=== PATIENT | male | born 1975 | race African-American/Black ===

== ENCOUNTER 2017-04-30 20:17 | Emergency (ER) | payer BC ==
[2017-04-30] MEDS ORDERED: KETOROLAC TROMETHAMINE 60 MG/2 ML SDV IM ONE (21:02)
[2017-04-30 21:05] VITALS: BP 153/82
--- NOTE | 2017-04-30 21:08 | ER Document Report ---
ED Headache - General Chief Complaint: Headache Stated Complaint: HEADACHE Time Seen by Provider: 04/30/17 20:54 Notes: 42 yo male with hx/o HTN, c/o intermittant frontal headache x 3 days. + sinus pressure. no fever, no neck pain. no n/v. no hx/o frequent headache TRAVEL OUTSIDE OF THE [place] IN LAST 30 DAYS: No - HPI Patient complains to provider of: Headache Onset was: Gradual. denies: Abrupt, Thunderclap Quality of pain: Achy, Dull Pain Level: 3 Associated symptoms: denies: Chills, Dizzy, Double/blurred vision, Fever, Nausea /vomiting, Neck pain, Photophobia Similar symptoms previously: No Recently seen / treated by doctor: Yes - last week - [facility] - Related Data Allergies/Adverse Reactions: Sulfa (Sulfonamide Antibiotics) Allergy (Verified 04/30/17 20:26) Past Medical History - General Information source: Patient - Social History Smoking Status: Current Every Day Smoker Cigarette use (# per day): Yes - 1 ppd Frequency of alcohol use: None Drug Abuse: None Occupation: unemployed Lives with: Family Family History: Reviewed & Not Pertinent Renal/ Medical History: Denies: Hx Peritoneal Dialysis Review of Systems - Review of Systems Constitutional: No symptoms reported EENT: No symptoms reported Cardiovascular: No symptoms reported Respiratory: No symptoms reported Gastrointestinal: No symptoms reported Genitourinary: No symptoms reported Male Genitourinary: No symptoms reported Musculoskeletal: No symptoms reported Skin: No symptoms reported Hematologic/Lymphatic: No symptoms reported Neurological/Psychological: See HPI Physical Exam - Vital signs Vitals: Temp Pulse Resp BP Pulse Ox 98.7 F 81 18 153/82 H 95 04/30/17 20:24 04/30/17 20:24 04/30/17 20:24 04/30/17 20:24 04/30/17 20:24 Interpretation: Normal - General General appearance: Appears well, Alert In distress: None - HEENT Head: Normocephalic, Atraumatic Eyes: Normal Conjunctiva: Normal Extraocular movements intact: Yes Pupils: PERRL Tympanic membrane: Normal Sinus: Tenderness - mild frontal tap tenderness Mucous membranes: Normal, Moist Pharynx: Normal Neck: Normal, Supple. No: Meningismus - Respiratory Respiratory status: No respiratory distress Chest status: Nontender Breath sounds: Normal Chest palpation: Normal - Cardiovascular Rhythm: Regular Heart sounds: Normal auscultation Murmur: No - Abdominal Inspection: Normal Distension: No distension Bowel sounds: Normal Tenderness: Nontender Organomegaly: No organomegaly - Back Back: Normal, Nontender - Extremities General upper extremity: Normal inspection, Nontender, Normal color, Normal ROM , Normal temperature General lower extremity: Normal inspection, Nontender, Normal color, Normal ROM , Normal temperature, Normal weight bearing. No: Alla's sign - Neurological Neuro grossly intact: Yes Cognition: Normal Orientation: AAOx4 Gates Coma Scale Eye Opening: Spontaneous Nathalia Coma Scale Verbal: Oriented Gates Coma Scale Motor: Obeys Commands Nathalia Coma Scale Total: 15 Speech: Normal Motor strength normal: LUE, RUE, LLE, RLE Sensory: Normal - Psychological Associated symptoms: Normal affect, Normal mood - Skin Skin Temperature: Warm Skin Moisture: Dry Skin Color: Normal Course - Re-evaluation Re-evalutation: 04/30/17 21:08 no syncope, no confusion, no neck pain, no visual disturbance or eye pain, no fever. low suspicion of SAH, acute stroke, temporal arteritis. pt is neurologicaly intact, afebrile, nontoxic. H&P more consistant with sinus headache. will treat headache with Toradol IM. Treat sinus inflammation with Mucinex, Coricidin HBP, Flonase and follow up tomorrow with PCM. pt agreeable with plan and stable for discharge 04/30/17 21:16 BP slightly elevated. pt has hx/o HTN. taking meds as prescribed. pt encourage to stop smoking, keep blood pressure diary and follow up with pcm for evaluation if BP remains elevated - Vital Signs Vital signs: Temp Pulse Resp BP Pulse Ox 98.7 F 81 18 153/82 H 95 04/30/17 20:24 04/30/17 20:24 04/30/17 20:24 04/30/17 20:24 04/30/17 20:24 Discharge - Discharge Clinical Impression: Headache Instructions: Headache ([facility]), Decongestant Medication ([facility]) Additional Instructions: Your headache today is more consistant with sinus pressure You were treated with an injection of Toradol You were given a prescription for Flonase, an intra-nasal steroid. Take as prescribed Recommend OTC Mucinex + Coricidin HBP to relieve sinus congestion and pressure Follow up with your primary care provider if your headaches persist Please return to ER for any worsening of pain, fever, or neck stiffness Prescriptions: Fluticasone Propionate [Flonase Nasal [place] 50 Mcg/[place] 16 gm] 2 sprays NASL DAILY #1 inhaler Forms: Elevated Blood Pressure
== END 2017-04-30 21:31 | disposition home or self-care (01) ==
LOC: ER 20:17
DX: J32.9 Chronic sinusitis, unspecified (principal); R51 Headache; I10 Essential (primary) hypertension; F17.210 Nicotine dependence, cigarettes, uncomplicated; Z88.2 Allergy status to sulfonamides
CPT/HCPCS: 99283; 96372; J1885

== ENCOUNTER 2017-07-24 01:06 | Emergency (ER) | payer BC ==
[2017-07-24] MEDS ORDERED: LIDOCAINE 1%/EPINEPHRINE INJ 20 ML VIAL INJ ONE (02:59)
[2017-07-24] MEDS ORDERED: DOXYCYCLINE HYCLATE 100 MG TABLET PO ONE (02:59)
--- NOTE | 2017-07-24 04:47 | ER Document Report ---
ED General - General Chief Complaint: Abscess Stated Complaint: POSSIBLE ALLERGIC REACTION Time Seen by Provider: 07/24/17 02:53 TRAVEL OUTSIDE OF THE [place] IN LAST 30 DAYS: No - Related Data Allergies/Adverse Reactions: Sulfa (Sulfonamide Antibiotics) Allergy (Verified 07/24/17 01:50) Past Medical History - Social History Smoking Status: Current Every Day Smoker Chew tobacco use (# tins/day): No Frequency of alcohol use: None Drug Abuse: None Family History: Reviewed & Not Pertinent Patient has suicidal ideation: No Patient has homicidal ideation: No - Past Medical History Cardiac Medical History: Reports: Hx Hypertension Renal/ Medical History: Denies: Hx Peritoneal Dialysis Past Surgical History: Reports: Hx Orthopedic Surgery - RIGHT KNEE - Immunizations Hx Diphtheria, Pertussis, Tetanus Vaccination: No Physical Exam - Vital signs Vitals: Temp Pulse Resp BP Pulse Ox 98.8 F 71 18 144/82 H 95 07/24/17 01:49 07/24/17 01:49 07/24/17 01:49 07/24/17 01:49 07/24/17 01:49 Course - Vital Signs Vital signs: Temp Pulse Resp BP Pulse Ox 98.8 F 71 18 144/82 H 95 07/24/17 01:49 07/24/17 01:49 07/24/17 01:52 07/24/17 01:49 07/24/17 01:49 Discharge - Discharge Clinical Impression: Rash, Abscess Condition: Good Disposition: HOME, SELF-CARE Additional Instructions: PLease take the antibiotic as prescribed. please stay out of the sun when on the antibiotic as it makes your skin very sensitive. please take the antibiotic with food. if your rash continues despite the antibiotic you will need to follow up with a building construction superintendent for further evaluation. please follow up with your primary care physician in 3-4 days and discuss with them referral to a building construction superintendent if your symptoms are not improving. Prescriptions: Diphenhydramine HCl [Benadryl] 25 mg PO Q6 PRN #30 capsule PRN Reason: Doxycycline Hyclate 100 mg PO BID #14 capsule
[2017-07-24 05:24] VITALS: BP 140/80
== END 2017-07-24 04:57 | disposition home or self-care (01) ==
LOC: ER 01:06
PROC: 0Y963ZZ Drainage of Left Inguinal Region, Percutaneous Approach (ICD-10-PCS; principal; 2017-07-24)
DX: L02.214 Cutaneous abscess of groin (principal); R21 Rash and other nonspecific skin eruption; F17.200 Nicotine dependence, unspecified, uncomplicated; I10 Essential (primary) hypertension; Z88.2 Allergy status to sulfonamides
CPT/HCPCS: 99283; 10061; J3490

== ENCOUNTER 2017-08-17 13:48 | Emergency (ER) | payer BC ==
[2017-08-17 13:55] VITALS: BP 144/76
--- NOTE | 2017-08-17 14:49 | ER Document Report ---
HPI - HPI Patient complains to provider of: Medication refill Onset: Yesterday Onset/Duration: Gradual Quality of pain: No pain Severity: None Pain Level: Denies Context: 42-year-old male presents to ED for complaint that he is out of his Lexapro. He states he has an appointment next week but ran out of his Lexapro yesterday and cannot get in to see a doctor until next week. [place] able to get into a doctor until next week. He is just requesting a refill on his prescription for 7 days. Associated Symptoms: None Exacerbated by: Denies Relieved by: Denies Similar symptoms previously: Yes Recently seen / treated by doctor: No - ROS ROS below otherwise negative: Yes - CONSTITUTIONAL Constitutional: DENIES: Fever, Chills - EENT EENT: DENIES: Sore Throat, Ear Pain, Nasal Drainage-Clear, Nasal Drainage- Purulent, Congestion, Eye problems - NEURO Neurology: DENIES: Headache, Weakness, Vision blurred, Dizzinesss / Vertigo - CARDIOVASCULAR Cardiovascular: DENIES: Chest pain - RESPIRATORY Respiratory: DENIES: Trouble Breathing, Coughing - GASTROINTESTINAL Gastrointestinal: DENIES: Abdominal Pain, Nausea, Patient vomiting, Diarrhea, Constipation, Black / Bloody Stools - URINARY Urinary: DENIES: Dysuria, Urgency, Frequency - REPRODUCTIVE Reproductive: DENIES: :, Postmenopausal, Abnormal bleeding / discharge - MUSCULOSKELETAL Musculoskeletal: DENIES: Extremity pain, Back Pain, Neck Pain, Swelling - DERM Skin Color: Normal Skin Problems: None Past Medical History - General Information source: Patient - Social History Smoking Status: Current Every Day Smoker Cigarette use (# per day): Yes - 10 cigarettes a day Chew tobacco use (# tins/day): No Smoking Education Provided: Yes - Less than 2 minutes Frequency of alcohol use: None Drug Abuse: None Occupation: Disabled Lives with: Spouse/Significant other Family History: Arthritis, CAD, CVA, Hyperlipidemia, Hypertension. denies: COPD , DM, Malignancy, Thyroid Disfunction Patient has suicidal ideation: No Patient has homicidal ideation: No - Past Medical History Cardiac Medical History: Reports: Hx Hypertension Pulmonary Medical History: Reports: None EENT Medical History: Reports: None Neurological Medical History: Reports: None Endocrine Medical History: Reports: None Renal/ Medical History: Reports: None Malignancy Medical History: Reports None GI Medical History: Reports: None Musculoskeltal Medical History: Reports Hx Arthritis - osteoarthritis, Reports Hx Musculoskeletal Deformity, Reports Hx Musculoskeletal Trauma Skin Medical History: Reports None Psychiatric Medical History: Reports: Hx Depression Traumatic Medical History: Reports: None Infectious Medical History: Reports: None Past Surgical History: Reports: Hx Orthopedic Surgery - RIGHT KNEE - Immunizations Hx Diphtheria, Pertussis, Tetanus Vaccination: No Vertical Provider Document - CONSTITUTIONAL Agree With Documented VS: Yes Exam Limitations: No Limitations General Appearance: WD/WN, No Apparent Distress - INFECTION CONTROL TRAVEL OUTSIDE OF THE [place] IN LAST 30 DAYS: No - HEENT HEENT: Atraumatic, Normal ENT Exam, Normocephalic, PERRLA - NECK Neck: Normal Inspection, Supple - RESPIRATORY Respiratory: Breath Sounds Normal, No Respiratory Distress, Chest Non-Tender O2 Sat by Pulse Oximetry: 95 - CARDIOVASCULAR Cardiovascular: Regular Rate, Regular Rhythm - MUSCULOSKELETAL/EXTREMETIES Musculoskeletal/Extremeties: MAEW, FROM, Non-Tender - NEURO Level of Consciousness: Awake, Alert, Appropriate Motor/Sensory: No Motor Deficit, No Sensory Deficit - DERM Integumentary: Warm, Dry, No Rash Course - Vital Signs Vital signs: Temp Pulse Resp BP Pulse Ox 98.5 F 66 20 144/76 H 95 08/17/17 13:54 08/17/17 13:54 08/17/17 13:54 08/17/17 13:54 08/17/17 13:54 Discharge - Discharge Clinical Impression: Medication refill Condition: Stable Disposition: HOME, SELF-CARE Additional Instructions: You were seen today because he ran out of the Lexapro. I have written you a prescription for 7 days of Lexapro which should last you until you can follow-up with your primary doctor or a mental health worker to get a refill on your Lexapro. FOLLOW-UP CARE: If you have been referred to a physician for follow-up care, call the physician s office for an appointment as you were instructed or within the next two days. If you experience worsening or a significant change in your symptoms, notify the physician immediately or return to the Emergency Department at any time for re-evaluation. Prescriptions: Escitalopram Oxalate [Lexapro] 20 mg PO DAILY #7 tablet Forms: Elevated Blood Pressure, Smoking Cessation Education Referrals: JARETH GOODE MD [Primary Care Provider] - Follow up as needed
== END 2017-08-17 14:56 | disposition home or self-care (01) ==
LOC: ER 13:48
DX: Z76.0 Encounter for issue of repeat prescription (principal); F32.9 Major depressive disorder, single episode, unspecified; I10 Essential (primary) hypertension; F17.210 Nicotine dependence, cigarettes, uncomplicated; Z71.6 Tobacco abuse counseling
CPT/HCPCS: 99281

== ENCOUNTER 2019-11-18 20:35 | Emergency (ER) | payer BC ==
[2019-11-18 20:43] VITALS: BP 166/80
== END 2019-11-19 00:19 | disposition left against medical advice (07) ==
LOC: ER 20:35
DX: Z53.21 Procedure and treatment not carried out due to patient leaving prior to being seen by health care provider (principal)